=== PATIENT | male | born 1960 | race Caucasian/White ===

== ENCOUNTER → 2023-03-07 | Outpatient (REF) | payer BC, OTHER ==
[2023-03-07 14:38] LABS: GC DNA AMPLIFICATION NEGATIVE (NEGATIVE)
== END ==
LOC: M LAB REF 12:07
PROVIDERS: ATTEND Physician Assistant
DX: R30.0 Dysuria (principal)

== ENCOUNTER → 2023-03-16 | Outpatient (CLI) | payer BC, OTHER ==
[2023-03-16 07:54] LABS: BASO # 0.1 10^3/uL (0.0-0.2); BASO % 0.4 % (0.0-1.0); EOS # 0.1 10^3/uL (0.0-0.5); EOS % 0.7 % (0.0-3.0); HEMATOCRIT 38.3 % (42.0-52.0); HEMOGLOBIN 12.3 g/dl (13.5-17.5); LYMPH # 2.7 10^3/uL (1.5-5.0); LYMPH % 20.3 % (24.0-44.0); MEAN CORPUSCULAR HEMOGLOBIN 27.1 pg (27.0-33.0); MEAN CORPUSCULAR HGB CONC 32.1 g/dl (32.0-36.5); MEAN CORPUSCULAR VOLUME 84.4 fl (80.0-96.0); MONO # 1.4 10^3/uL (0.0-0.8); MONO % 10.4 % (2.0-8.0); NEUTROPHILS % 67.4 % (36.0-66.0); PLATELET COUNT, AUTOMATED 594 10^3/uL (150-450); RED BLOOD COUNT 4.54 10^6/uL (4.30-6.10); WHITE BLOOD COUNT 13.3 10^3/uL (4.0-10.0)
[2023-03-16 08:22] LABS: CREATININE, URINE 200.2 MG/DL; MAU/CREAT RATIO 52.9 MCG/MG (0.0-30.0)
[2023-03-16 08:26] LABS: ALBUMIN 2.4 G/DL (3.2-5.2); ALKALINE PHOSPHATASE 343 U/L (46-116); ALT/SGPT 88 U/L (7.0-40); AST/SGOT 56 U/L (<34); BILIRUBIN,TOTAL 0.7 MG/DL (0.3-1.2); BLOOD UREA NITROGEN 19 MG/DL (9-23); CARBON DIOXIDE LEVEL 26 MMOL/L (20-31); CHLORIDE LEVEL 104 MMOL/L (98-107); CHOLESTEROL LEVEL 141 MG/DL (<200); CREATININE FOR GFR 0.71 MG/DL (0.70-1.30); FREE T4 0.99 NG/DL (0.89-1.76); GLOMERULAR FILTRATION RATE > 60.0 (>49); GLUCOSE, FASTING 110 MG/DL (74-106); HDL CHOLESTEROL 27.1 MG/DL (>40); LDL CHOLESTEROL 99.7 MG/DL (<100); NON-HDL-C 113.9 MG/DL; POTASSIUM SERUM 4.5 MMOL/L (3.5-5.1); PROSTATIC SPECIFIC AG MONITOR 0.58 NG/ML (< 4.00); SODIUM LEVEL 137 MMOL/L (136-145); THYROID STIMULATING HORMONE 1.741 uIU/ML (0.55-4.78); TOTAL PROTEIN 5.9 G/DL (5.7-8.2); TRIGLYCERIDES LEVEL 71 MG/DL (<150)
[2023-03-16 08:31] LABS: HEMOGLOBIN A1c 5.7 % (4.0-6.0)
== END ==
LOC: M LAB 07:12
PROVIDERS: ATTEND Family Medicine
DX: E66.3 Overweight (principal)

== ENCOUNTER → 2023-04-02 | Outpatient (CLI) | payer BC, OTHER | LOC: M RAD 10:47 | PROVIDERS: ATTEND Family Medicine | DX: R39.15 Urgency of urination (principal) ==

== ENCOUNTER → 2023-04-09 | Outpatient (CLI) | payer BC, OTHER ==
[2023-04-09 09:17] LABS: IRON (FE) 17 UG/DL (65-175); PERCENT SATURATION 8.9 % (19.7-50.0); TOTAL IRON BINDING CAPACITY 192 UG/DL (250-425)
[2023-04-09 09:36] LABS: HEPATITIS B SURFACE ANTIGEN NEGATIVE (NEGATIVE)
[2023-04-09 09:38] LABS: INR 1.24; PROTHROMBIN TIME 15.9 SECONDS (12.5-14.5)
[2023-04-09 09:39] LABS: PARTIAL THROMBOPLASTIN TIME 33.3 SECONDS (24.8-34.2)
[2023-04-09 09:57] LABS: HEPATITIS C VIRUS ABY INDEX 0.19 INDEX (<0.8)
[2023-04-09 09:58] LABS: HEPATITIS B CORE ANTIBODY IGM NEGATIVE (NEGATIVE)
== END ==
LOC: M LAB 08:08
PROVIDERS: ATTEND Physician Assistant Medical
DX: R74.01 Elevation of levels of liver transaminase levels (principal)

== ENCOUNTER → 2023-04-12 | Outpatient (CLI) | payer BC, OTHER | LOC: M RAD 08:11 | PROVIDERS: ATTEND Physician Assistant Medical | DX: R74.01 Elevation of levels of liver transaminase levels (principal); R16.0 Hepatomegaly, not elsewhere classified; K74.60 Unspecified cirrhosis of liver ==

== ENCOUNTER → 2023-04-19 | Outpatient (CLI) | payer BC, OTHER ==
[~2023-04-19] MED LIST: GASTROGRAFIN SOLUTION 30ML As Ordered ONE; ISOVUE-370 76% 100ML VIAL As Ordered ONE
== END ==
LOC: M RAD 11:48
PROVIDERS: ATTEND Family Medicine
DX: N32.9 Bladder disorder, unspecified (principal); K74.60 Unspecified cirrhosis of liver; D48.0 Neoplasm of uncertain behavior of bone and articular cartilage
CPT/HCPCS: 74177; Q9963; Q9967

== ENCOUNTER → 2023-04-23 | Outpatient (CLI) | payer BC, OTHER ==
[2023-04-23 09:33] LABS: HEMATOCRIT 32.1 % (42.0-52.0); HEMOGLOBIN 10.4 g/dl (13.5-17.5); MEAN CORPUSCULAR HEMOGLOBIN 26.7 pg (27.0-33.0); MEAN CORPUSCULAR HGB CONC 32.4 g/dl (32.0-36.5); MEAN CORPUSCULAR VOLUME 82.5 fl (80.0-96.0); PLATELET COUNT, AUTOMATED 550 10^3/uL (150-450); RED BLOOD COUNT 3.89 10^6/uL (4.30-6.10); WHITE BLOOD COUNT 17.8 10^3/uL (4.0-10.0)
[2023-04-23 10:14] LABS: LYMPHOCYTES 15 % (16-44); MONOCYTES 11 % (0-5); NEUTROPHILS 74 % (28-66)
[2023-04-23 10:15] LABS: PLATELET ESTIMATE INCREASED (NORMAL); POLYCHROMASIA 1+
== END ==
LOC: M LAB 08:20
PROVIDERS: ATTEND Family Medicine
DX: K74.60 Unspecified cirrhosis of liver (principal); D72.829 Elevated white blood cell count, unspecified

== ENCOUNTER → 2023-05-03 | Outpatient (CLI) | payer BC, OTHER ==
[~2023-05-03] MED LIST changes: -GASTROGRAFIN SOLUTION 30ML As Ordered ONE; +IRON27TA2 PO; -ISOVUE-370 76% 100ML VIAL As Ordered ONE; +OMEP40CA5
== END ==
LOC: M LAB 08:55
PROVIDERS: ATTEND Physician Assistant Medical
DX: R74.01 Elevation of levels of liver transaminase levels (principal); R93.3 Abnormal findings on diagnostic imaging of other parts of digestive tract

== ENCOUNTER → 2023-05-09 | Outpatient (REF) | payer OTHER ==
[~2023-05-09] MED LIST changes: -OMEP40CA5; +OMEP40CA5 PO
== END ==
LOC: M LABSMT 08:35
PROVIDERS: ATTEND Urology
DX: Z53.9 Procedure and treatment not carried out, unspecified reason (principal)

== ENCOUNTER → 2023-05-16 | Outpatient (CLI) | payer BC, OTHER ==
[~2023-05-16] VITALS: Ht 175.3 cm; Wt 74.8 kg
[~2023-05-16] MED LIST changes: +LIDOCAINE W/EPINEPHRINE 1% 20ML VIAL As Ordered ONE; +MIDAZOLAM INJ 2MG/2ML VIAL As Ordered ONE; +NS 1,000 ML IV SCH; +OXYB5TAB10 PO; +ceFAZolin 2 GM/D5W 50 ML IV BAG As Ordered ONE; +ceFAZolin SOD 2 GM in IV 1 EA IV ONE; +fentaNYL 100 MCG/2 ML INJECTION As Ordered ONE
[2023-05-16 07:30] VITALS: TEMP 99.1
[2023-05-16 11:45] VITALS: BP 117/67; O2SAT 97
== END ==
LOC: M IRPRO 07:13
PROVIDERS: ATTEND Specialist
DX: N32.9 Bladder disorder, unspecified (principal)
CPT/HCPCS: 36561; 99152; 99153; J0690; J2250; J3010

== ENCOUNTER → 2023-05-18 | Outpatient (CLI) | payer BC, OTHER ==
[~2023-05-18] MED LIST changes: -LIDOCAINE W/EPINEPHRINE 1% 20ML VIAL As Ordered ONE; -MIDAZOLAM INJ 2MG/2ML VIAL As Ordered ONE; -NS 1,000 ML IV SCH; -ceFAZolin 2 GM/D5W 50 ML IV BAG As Ordered ONE; -ceFAZolin SOD 2 GM in IV 1 EA IV ONE; -fentaNYL 100 MCG/2 ML INJECTION As Ordered ONE
== END ==
LOC: M PLAIMG 07:39
PROVIDERS: ATTEND Physician Assistant Medical
DX: R93.3 Abnormal findings on diagnostic imaging of other parts of digestive tract (principal); R74.01 Elevation of levels of liver transaminase levels

== ENCOUNTER 2023-05-21 11:25 | Day surgery (SDC) | payer BC, OTHER ==
[~2023-05-21] VITALS: Ht 175.3 cm; Wt 79.9 kg
[~2023-05-21 11:25] MED LIST changes: +NS 1,000 ML IV ONE
[2023-05-21] MEDS ORDERED: LIDOCAINE 2% 100MG/5ML SDV (FOR ANES.) As Ordered ONE (12:05)
[2023-05-21] MEDS ORDERED: propofoL 500 MG/50 ML VIAL As Ordered ONE (12:06)
[2023-05-21] MEDS ORDERED: fentaNYL 100 MCG/2 ML INJECTION As Ordered ONE (12:07)
[2023-05-21 14:33] VITALS: BP 110/63; O2SAT 97
[2023-05-25] MEDS ORDERED: MAPA500C PO (09:42)
== END 2023-05-21 14:35 | disposition home or self-care (01) ==
LOC: M OPP 11:25
PROVIDERS: ATTEND Internal Medicine Gastroenterology
DX: D12.4 Benign neoplasm of descending colon (principal); D12.5 Benign neoplasm of sigmoid colon; D12.2 Benign neoplasm of ascending colon; D12.0 Benign neoplasm of cecum; K57.30 Diverticulosis of large intestine without perforation or abscess without bleeding; K64.8 Other hemorrhoids; D50.9 Iron deficiency anemia, unspecified; K74.60 Unspecified cirrhosis of liver; K22.2 Esophageal obstruction; K20.90 Esophagitis, unspecified without bleeding
CPT/HCPCS: 43239; 43249; 45385; 88305; J3010

== ENCOUNTER → 2023-05-25 | Outpatient (CLI) | payer BC, OTHER ==
[~2023-05-25] MED LIST changes: +MAPA500C PO; -NS 1,000 ML IV ONE; +VITA100T28 PO
[2023-05-25 11:58] LABS: HEMATOCRIT 28.8 % (42.0-52.0); HEMOGLOBIN 9.1 g/dl (13.5-17.5); MEAN CORPUSCULAR HEMOGLOBIN 28.5 pg (27.0-33.0); MEAN CORPUSCULAR HGB CONC 31.6 g/dl (32.0-36.5); MEAN CORPUSCULAR VOLUME 90.3 fl (80.0-96.0); PLATELET COUNT, AUTOMATED 333 10^3/uL (150-450); RED BLOOD COUNT 3.19 10^6/uL (4.30-6.10); WHITE BLOOD COUNT 26.8 10^3/uL (4.0-10.0)
[2023-05-25 12:13] LABS: INR 1.56; PROTHROMBIN TIME 18.2 SECONDS (12.5-14.5)
[2023-05-25 12:22] LABS: ALBUMIN 1.2 G/DL (3.2-5.2); ALKALINE PHOSPHATASE 385 U/L (46-116); ALT/SGPT 50 U/L (7.0-40); AST/SGOT 86 U/L (<34); BILIRUBIN,TOTAL 1.8 MG/DL (0.3-1.2); BLOOD UREA NITROGEN 14 MG/DL (9-23); CALCIUM LEVEL 8.1 MG/DL (8.3-10.6); CARBON DIOXIDE LEVEL 22 MMOL/L (20-31); CHLORIDE LEVEL 103 MMOL/L (98-107); CREATININE FOR GFR 0.61 MG/DL (0.70-1.30); GLOMERULAR FILTRATION RATE > 60.0 (>49); GLUCOSE, FASTING 128 MG/DL (74-106); POTASSIUM SERUM 4.2 MMOL/L (3.5-5.1); SODIUM LEVEL 135 MMOL/L (136-145); TOTAL PROTEIN 5.1 G/DL (5.7-8.2)
== END ==
LOC: M RAD 11:03
PROVIDERS: ATTEND Urology
DX: N32.89 Other specified disorders of bladder (principal)

== ENCOUNTER 2023-05-31 06:08 | Day surgery (SDC) | payer BC, OTHER ==
[~2023-05-31] VITALS: Ht 175.3 cm; Wt 83.1 kg
[~2023-05-31 06:08] MED LIST changes: +mitoMYcin 40MG VIAL *UROLOGY INTRAVESIC ONE
[2023-05-31] MEDS ORDERED: LR 1,000 ML IV SCH ×2 (06:45→08:35)
[2023-05-31] MEDS ORDERED: ceFAZolin SOD 2 GM in IV 1 EA IV ONE (06:45)
[2023-05-31] MEDS ORDERED: MIDAZOLAM INJ 2MG/2ML VIAL As Ordered ONE (07:08)
[2023-05-31] MEDS ORDERED: fentaNYL 100 MCG/2 ML INJECTION As Ordered ONE (07:09)
[2023-05-31] MEDS ORDERED: HYDROMORPHONE HCL 0.5 MG/ 0.5 ML SYRINGE IV PRN (08:35)
[2023-05-31] MEDS ORDERED: ONDANSETRON 4MG 2ML VIAL IV PRN (08:35)
[2023-05-31] MEDS ORDERED: METOCLOPRAMIDE INJ 10MG/2ML VIAL IV PRN (08:35)
[2023-05-31] MEDS ORDERED: oxyCODONE 5MG TAB PO PRN (08:35)
[2023-05-31] MEDS ORDERED: fentaNYL 100 MCG/2 ML INJECTION IV PRN (08:35)
[2023-05-31] MEDS ORDERED: PYRI1TAB5 PO (08:44)
[2023-05-31] MEDS ORDERED: OXYB5TAB10 PO (08:44)
[2023-05-31] MEDS ORDERED: MACR100C43 PO (08:44)
[2023-05-31 11:25] VITALS: BP 125/75; TEMP 97; O2SAT 95
== END 2023-05-31 11:25 | disposition home or self-care (01) ==
LOC: M SDC 06:08
PROVIDERS: ATTEND Urology
DX: C67.9 Malignant neoplasm of bladder, unspecified (principal); N36.5 Urethral false passage; Z79.899 Other long term (current) drug therapy
CPT/HCPCS: 52240; 88307; J0690; J2250; J3010

== ENCOUNTER → 2023-06-01 | Outpatient (CLI) | payer BC, OTHER ==
[~2023-06-01] MED LIST changes: +LIDOCAINE 1% MDV 20ML VIAL As Ordered ONE; +MACR100C43 PO; +PYRI1TAB5 PO; -mitoMYcin 40MG VIAL *UROLOGY INTRAVESIC ONE
[2023-06-01 11:00] VITALS: TEMP 98
[2023-06-01 13:37] VITALS: BP 126/70; O2SAT 96
== END ==
LOC: M IRPRO 10:54
PROVIDERS: ATTEND Specialist
DX: C78.7 Secondary malignant neoplasm of liver and intrahepatic bile duct (principal); C68.8 Malignant neoplasm of overlapping sites of urinary organs

== ENCOUNTER → 2023-06-12 | Outpatient (CLI) | payer BC, OTHER ==
[~2023-06-12] MED LIST changes: +CONS10SO3 PO; +FURO40TA2 PO; -LIDOCAINE 1% MDV 20ML VIAL As Ordered ONE
== END ==
LOC: M RAD 15:14
PROVIDERS: ATTEND Urology
DX: R22.43 Localized swelling, mass and lump, lower limb, bilateral (principal); C67.8 Malignant neoplasm of overlapping sites of bladder

== ENCOUNTER 2023-06-16 12:28 | Inpatient (IN) | payer BC, OTHER ==
[2023-06-16] VITALS (19 sets, daily range): BP systolic 68–106; BP diastolic 45–56; TEMP 97.5–99.4; O2SAT 93–96
[~2023-06-16] VITALS: Ht 175.3 cm; Wt 86.2 kg
[~2023-06-16 12:28] MED LIST changes: -CONS10SO3 PO; -FURO40TA2 PO
[2023-06-16 13:17] LABS: HEMATOCRIT 31.9 % (42.0-52.0); MEAN CORPUSCULAR HGB CONC 31.3 g/dl (32.0-36.5); MEAN CORPUSCULAR VOLUME 95.8 fl (80.0-96.0); RED BLOOD COUNT 3.33 10^6/uL (4.30-6.10); WHITE BLOOD COUNT 29.3 10^3/uL (4.0-10.0)
[2023-06-16 13:23] LABS: PLATELET COUNT, AUTOMATED 66 10^3/uL (150-450)
[2023-06-16 13:26] LABS: INR 3.39; PROTHROMBIN TIME 33.5 SECONDS (12.5-14.5)
[2023-06-16 13:44] LABS: ALKALINE PHOSPHATASE 518 U/L (46-116); ALT/SGPT 67 U/L (7.0-40); AST/SGOT 253 U/L (<34); BILIRUBIN,DIRECT 5.4 MG/DL (<0.4); BILIRUBIN,TOTAL 6.4 MG/DL (0.3-1.2); BLOOD UREA NITROGEN 75 MG/DL (9-23); CALCIUM LEVEL 7.2 MG/DL (8.3-10.6); CARBON DIOXIDE LEVEL 17 MMOL/L (20-31); CHLORIDE LEVEL 105 MMOL/L (98-107); CREATININE FOR GFR 3.16 MG/DL (0.70-1.30); GLOMERULAR FILTRATION RATE 21.5 (>49); GLUCOSE, FASTING 64 MG/DL (74-106); SODIUM LEVEL 135 MMOL/L (136-145); TOTAL PROTEIN 5.1 G/DL (5.7-8.2)
[2023-06-16] MEDS ORDERED: NS 500 ML IV ONE (13:50)
[2023-06-16 13:51] LABS: RSV AMPLIFICATION NEGATIVE (NEGATIVE)
[2023-06-16 13:56] LABS: PROCALCITONIN 32.73 ng/ml
[2023-06-16 14:04] LABS: PARTIAL THROMBOPLASTIN TIME 48.6 SECONDS (24.8-34.2)
[2023-06-16 14:15] LABS: AMYLASE < 20 U/L (30-118)
[2023-06-16] MEDS ORDERED: PIPERACILLIN/TAZOBACTAM SOD 3.375 GM in D5W MINI-BAG PLUS 50 ML IV ONE (14:25)
[2023-06-16 14:26] LABS: VENOUS BASE EXCESS -7.4 (-2.0-2.0); VENOUS O2 SATURATION 64.2 % (60.0-80.0); VENOUS PARTIAL PRESSURE O2 37.5 mmHg (30.0-50.0); VENOUS PH 7.357 UNITS (7.330-7.430); VENOUS STANDARD HCO3 17.9 MMOL/L
[2023-06-16 14:34] LABS: LYMPHOCYTES 2 % (16-44); METAMYELOCYTES 2 % (0-0); MONOCYTES 4 % (0-5); MYELOCYTES 1 % (0-0); NEUTROPHILS 87 % (28-66); PLATELET ESTIMATE NORMAL (NORMAL)
[2023-06-16 16:48] LABS: APPEARANCE, URINE MANUAL TURBID (CLEAR)
[2023-06-16 16:49] LABS: COLOR, URINE MANUAL AMBER (YELLOW)
[2023-06-16 16:51] LABS: BILIRUBIN, URINE MANUAL 3+ (NEGATIVE); GLUCOSE, URINE (UA) MANUAL NEGATIVE (NEGATIVE); KETONE, URINE MANUAL NEGATIVE (NEGATIVE); NITRITE, URINE MANUAL NEGATIVE (NEGATIVE); PROTEIN, URINE MANUAL 3+ mg/dL (NEGATIVE); UROBILINOGEN, URINE MANUAL NORMAL (NORMAL)
[2023-06-16 16:52] LABS: BLOOD URINE MANUAL POSITIVE (NEGATIVE); LEUKOCYTE ESTERASE, URINE MAN TRACE (NEGATIVE)
[2023-06-16 16:57] LABS: RBC, URINE TNTC /hpf (0-3); WBC, URINE 30-40 /hpf (0-3)
[2023-06-16 16:58] LABS: BACTERIA, URINE LARGE AMOUNT; HYALINE CAST, URINE NONE SEEN /lpf (0-1); SQUAMOUS EPITHELIAL CELL URINE 0 /hpf (SMALL AMT)
[2023-06-16] MEDS ORDERED: NS 1,000 ML IV ONE (17:25)
[2023-06-16] MEDS ORDERED: VANCOMYCIN HCL 1,500 MG in NS 250 ML IV ONE (17:40)
[2023-06-16] MEDS ORDERED: VANCOMYCIN HCL 750 MG, VIAL MATE ADAPTER 1 EACH in D5W 250 ML IV ONE ×3 (18:00→22:00)
[2023-06-16] MEDS ORDERED: PIPERACILLIN/TAZOBACTAM SOD 2.25 GM in D5W MINI-BAG PLUS 50 ML IV SCH (18:30)
[2023-06-16] MEDS ORDERED: CONS10SO3 PO (18:42)
[2023-06-16] MEDS ORDERED: FURO40TA2 PO (18:42)
[2023-06-16] MEDS ORDERED: HOME MED LIST COMPLETE! XX SCH (18:45)
[2023-06-16] MEDS: NS 1,000 ML IV SCH (19:10)
[2023-06-16] MEDS ORDERED: AZITHROMYCIN INJ 500 MG, VIAL MATE ADAPTER 1 EACH in NS 250 ML IV SCH (20:00)
[2023-06-16] MEDS ORDERED: HEPARIN SOD (PORCINE) 5000UNITS/ML 1ML VIAL/SYRINGE SQ SCH (21:00)
[2023-06-16] MEDS ORDERED: PANTOPRAZOLE 40MG VIAL IV SCH (21:00)
[2023-06-16] MEDS ORDERED: MORPHINE 2 MG/ML 1ML VIAL IV ONE (22:00)
[2023-06-16] MEDS: NOREPINEPHRINE 4MG IN D5 250ML 4 MG in IV 1 EA IV SCH ×2 (22:28)
[2023-06-16] MEDS: PIPERACILLIN/TAZOBACTAM SOD 3.375 GM in D5W MINI-BAG PLUS 50 ML IV SCH (23:59)
[2023-06-17] VITALS (42 sets, daily range): BP systolic 86–133; BP diastolic 50–64; TEMP 99.1–99.3; O2SAT 93–96
[2023-06-17] MEDS: NOREPINEPHRINE 4MG IN D5 250ML 4 MG in IV 1 EA IV SCH ×4 (03:05→08:41)
[2023-06-17] MEDS: PIPERACILLIN/TAZOBACTAM SOD 3.375 GM in D5W MINI-BAG PLUS 50 ML IV SCH (06:17)
[2023-06-17 07:27] LABS: HEMATOCRIT 29.7 % (42.0-52.0); HEMOGLOBIN 9.4 g/dl (13.5-17.5); MEAN CORPUSCULAR HEMOGLOBIN 29.6 pg (27.0-33.0); MEAN CORPUSCULAR HGB CONC 31.6 g/dl (32.0-36.5); MEAN CORPUSCULAR VOLUME 93.4 fl (80.0-96.0); RED BLOOD COUNT 3.18 10^6/uL (4.30-6.10)
[2023-06-17 07:29] LABS: PLATELET COUNT, AUTOMATED 60 10^3/uL (150-450)
[2023-06-17 07:50] LABS: VANCOMYCIN RANDOM 17.7 UG/ML
[2023-06-17 07:51] LABS: ALBUMIN 1.2 G/DL (3.2-5.2); BILIRUBIN,TOTAL 6.4 MG/DL (0.3-1.2); CALCIUM LEVEL 6.7 MG/DL (8.3-10.6); CREATININE FOR GFR 3.33 MG/DL (0.70-1.30); GLOMERULAR FILTRATION RATE 20.2 (>49); POTASSIUM SERUM 5.6 MMOL/L (3.5-5.1)
[2023-06-17] MEDS ORDERED: DEXTROSE 50% 50ML SYRINGE IV STA (07:55)
[2023-06-17] MEDS ORDERED: CALCIUM GLUCONATE 1,000 MG in D5W MINI-BAG PLUS 100 ML IV ONE (07:55)
[2023-06-17] MEDS ORDERED: HumuLIN R (REGULAR) INSULIN (NovoLIN R) **100U/ML** PER UNIT IV STA (07:55)
[2023-06-17 07:58] LABS: PROCALCITONIN 30.37 ng/ml
[2023-06-17] MEDS ORDERED: VANCOMYCIN HCL 750 MG, VIAL MATE ADAPTER 1 EACH in D5W 250 ML IV SCH (08:00)
[2023-06-17] MEDS: NS 1,000 ML IV SCH (08:41)
[2023-06-17] MEDS ORDERED: VANCOMYCIN INTERMITTENT/PULSE DOSING BY CLINICAL PHARMACIST PER DOSING PROTOCOL XX SCH (09:00)
[2023-06-17] MEDS ORDERED: VANCOMYCIN HCL 750 MG, VIAL MATE ADAPTER 1 EACH in D5W 250 ML IV ONE (09:00)
[2023-06-17] MEDS ORDERED: SCOPOLAMINE 1MG TRANSDERMAL PATCH TOP PRN (10:45)
[2023-06-17] MEDS ORDERED: ONDANSETRON 4MG 2ML VIAL IV PRN (10:45)
[2023-06-17] MEDS ORDERED: LORazepam 2 MG/ML 1ML VIAL IV PRN (10:45)
[2023-06-17] MEDS: MORPHINE 2 MG/ML 1ML VIAL IV PRN ×6 (11:45→23:47)
[2023-06-18] MEDS: MORPHINE 2 MG/ML 1ML VIAL IV PRN (01:57)
== END 2023-06-18 03:04 | disposition expired | DRG 720 ==
LOC: M ED 12:28 → M ED INP 18:27 → ENRESERV 19:29 → M ICU 20:19
PROVIDERS: ADMIT Internal Medicine; ATTEND Internal Medicine
DX: A41.9 Sepsis, unspecified organism (principal); J96.01 Acute respiratory failure with hypoxia; K72.00 Acute and subacute hepatic failure without coma; N17.0 Acute kidney failure with tubular necrosis; R65.21 Severe sepsis with septic shock; G93.41 Metabolic encephalopathy; K83.1 Obstruction of bile duct; J15.6 Pneumonia due to other Gram-negative bacteria; D68.9 Coagulation defect, unspecified; E87.20 Acidosis, unspecified; C78.7 Secondary malignant neoplasm of liver and intrahepatic bile duct; C79.11 Secondary malignant neoplasm of bladder; C79.51 Secondary malignant neoplasm of bone; R18.8 Other ascites; E87.5 Hyperkalemia; C68.0 Malignant neoplasm of urethra; Z51.5 Encounter for palliative care; Z66 Do not resuscitate